=== PATIENT | female | born 1985 | race Caucasian/White ===

== ENCOUNTER 2021-04-10 07:59 | Emergency (ER) | payer OTHER | END 2021-04-10 19:17 | disposition left against medical advice (07) | LOC: FER 07:59 | DX: R42 Dizziness and giddiness (principal); Z53.21 Procedure and treatment not carried out due to patient leaving prior to being seen by health care provider | CPT/HCPCS: J7030 ==

== ENCOUNTER 2021-04-10 22:42 | Inpatient (IN) | payer OTHER ==
[2021-04-11 01:27] LABS: PROTHROMBIN TIME 12.6 SECONDS (11.8-13.4)
[2021-04-11 01:32] LABS: BASOPHIL 0.1 % (0-2); EOSINOPHIL 2.6 % (0-5); HCT 16.9 % (37.0-47.0); LYMPHOCYTE 18.5 % (15-48); MCH 17.4 pg (25.0-31.0); MCHC 25.4 g/dL (32.0-36.0); MCV 68.4 fL (78.0-100.0); MONOCYTE 8.6 % (0-12); MPV 9.9 fL (6.0-9.5); NEUTROPHIL 69.6 % (41-80); NRBC 0.3; PLT 364 K/uL (150-400); RBC 2.47 M/uL (4.20-5.40)
[2021-04-11 01:35] LABS: ALBUMIN 3.4 g/dL (3.4-5.0); BILIRUBIN - TOTAL 0.2 mg/dL (0.2-1.0); BUN/CREAT RATIO (CALC) 18.1 RATIO; CREATININE 0.83 mg/dL (0.51-0.95); GLOBULIN (CALCULATION) 3.7 g/dL; POTASSIUM 4.1 mmol/L (3.5-5.1); TOTAL PROTEIN 7.1 g/dL (6.4-8.2)
[2021-04-11 01:43] LABS: HGB 4.3 g/dl (12.5-16.0)
[2021-04-11 14:25] LABS: HCT 21.5 % (37.0-47.0); HGB 6.1 g/dL (12.5-16.0)
--- NOTE | 2021-04-11 14:50 | NUR ---
PATIENT ARRIVED TO FLOOR VIA WHEELCHAIR WITH ALL BELONGINGS. 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 PT STATED SHE WAS GOING TO GO HOME. MYSELF AND ASHLEY LOVELACE EXPLAINED THAT PT HGB WAS STILL CRITICALLY LOW AND WE WOULD NOT ADVISE SHE LEAVE. PT WAS INSISTENT ON LEAVING. NOTIFIED DR. NEWTON AND HE SAID TO HAVE HER SIGN THE AMA PAPERWORK AND SEND HER HOME. AMA FORM WAS SIGNED AND BILATERAL AC IVs WERE REMOVED WITHOUT DIFFICULTY. CATHETER INTACT. PT WALKED OUT OF HOSPITAL WITH ALL BELONGINGS. SHE STATED SHE WOULD DRIVE HERSELF HOME.
== END 2021-04-11 11:44 | disposition left against medical advice (07) | DRG 811 ==
LOC: FER 22:42 → FOFB 04-11 04:49 → FTCU 04-11 10:23
PROVIDERS: Emergency Medicine; Nurse Practitioner; ADMIT Internal Medicine
PROC: 30233N1 Transfusion of Nonautologous Red Blood Cells into Peripheral Vein, Percutaneous Approach (ICD-10-PCS; principal; 2021-04-11)
PROC: 8E0ZXY6 Isolation (ICD-10-PCS; 2021-04-11)
DX: D50.9 Iron deficiency anemia, unspecified (principal); U07.1 COVID-19; K90.9 Intestinal malabsorption, unspecified; F41.9 Anxiety disorder, unspecified; F17.210 Nicotine dependence, cigarettes, uncomplicated; K21.9 Gastro-esophageal reflux disease without esophagitis; K44.9 Diaphragmatic hernia without obstruction or gangrene; K42.9 Umbilical hernia without obstruction or gangrene; F32.A Depression, unspecified; Z86.14 Personal history of Methicillin resistant Staphylococcus aureus infection; Z79.899 Other long term (current) drug therapy
CPT/HCPCS: 36415; 36430; 80053; 85014; 85018; 85025; 85610; 86850; 86900; 86901; 86922; C9113; J2060; J7030; J7050; P9016; Q9967; U0002

== ENCOUNTER 2021-04-26 23:17 | Inpatient (IN) | payer OTHER ==
[~2021-04-26] VITALS: Ht 170.2 cm; Wt 152.5 kg
[2021-04-27 01:45] LABS: BILIRUBIN NEGATIVE (NEGATIVE); BLOOD 3+ Ery/uL (NEGATIVE); COLOR YELLOW (YELLOW); GLUCOSE (U) NORMAL (NORMAL); LEUKOCYTES NEGATIVE Leu/uL (NEGATIVE); NITRITE NEGATIVE (NEGATIVE); PROTEIN TRACE (LOW) mg/dL (NEGATIVE); SPECIFIC GRAVITY 1.025 (1.001-1.030); UROBILINOGEN 0.2 mg/dL (0.2-1.0); pH 6.5 (5.0-9.0)
[2021-04-27 01:47] LABS: CLARITY SLIGHTLY HAZY (CLEAR)
[2021-04-27 01:48] LABS: HCG (URINE) SCREEN NEGATIVE (NEGATIVE)
[2021-04-27 01:53] LABS: BACTERIA TRACE; URINARY RBC TNTC
[2021-04-27 09:28] LABS: HGB 6.9 g/dL (12.5-16.0)
[2021-04-27] MEDS ORDERED: FEOSOL325 MG PO (16:56)
[2021-04-27] MEDS ORDERED: PROTONIX 40MG T40 MG PO (16:56)
[2021-04-27] MEDS ORDERED: FOLIC ACID1 MG PO (16:56)
== END 2021-04-27 17:00 | disposition left against medical advice (07) | DRG 812 ==
LOC: FER 23:17 → FMS 04-27 00:07
PROVIDERS: Family Medicine; Nurse Practitioner; ADMIT Internal Medicine
PROC: 30233N1 Transfusion of Nonautologous Red Blood Cells into Peripheral Vein, Percutaneous Approach (ICD-10-PCS; principal; 2021-04-27)
DX: D50.9 Iron deficiency anemia, unspecified (principal); Z20.822 Contact with and (suspected) exposure to COVID-19; F32.A Depression, unspecified; K21.9 Gastro-esophageal reflux disease without esophagitis; F17.200 Nicotine dependence, unspecified, uncomplicated; E66.01 Morbid (severe) obesity due to excess calories; F41.9 Anxiety disorder, unspecified; F17.210 Nicotine dependence, cigarettes, uncomplicated; R10.9 Unspecified abdominal pain; Z98.890 Other specified postprocedural states
CPT/HCPCS: 36415; 81001; 84703; 85018; 86922; C9113; J2916; P9016; U0002

== ENCOUNTER 2021-08-03 10:06 | Emergency (ER) | payer OTHER ==
[~2021-08-03 10:06] MED LIST: FEOSOL325 MG PO; FOLIC ACID1 MG PO; PROTONIX 40MG T40 MG PO
[2021-08-03 11:45] LABS: BASOPHIL 0.3 % (0-2); EOSINOPHIL 1.6 % (0-5); HCT 21.6 % (37.0-47.0); LYMPHOCYTE 8.3 % (15-48); MCH 16.5 pg (25.0-31.0); MCHC 25.5 g/dL (32.0-36.0); MCV 64.7 fL (78.0-100.0); MONOCYTE 6.1 % (0-12); MPV 9.7 fL (6.0-9.5); NEUTROPHIL 83.3 % (41-80); NRBC 0; PLT 384 K/uL (150-400); RBC 3.34 M/uL (4.20-5.40); RDW 20.7 % (11.5-14.0); WBC 9.9 K/uL (4.0-10.5)
[2021-08-03 12:04] LABS: HGB 5.5 g/dl (12.5-16.0)
[2021-08-03 12:09] LABS: BUN/CREAT RATIO (CALC) 22.5 RATIO; CREATININE 0.71 mg/dL (0.51-0.95); POTASSIUM 3.9 mmol/L (3.5-5.1)
== END 2021-08-03 17:25 | disposition home or self-care (01) ==
LOC: FER 10:06
PROVIDERS: Emergency Medicine
DX: D50.9 Iron deficiency anemia, unspecified (principal); F17.210 Nicotine dependence, cigarettes, uncomplicated
CPT/HCPCS: 36415; 36430; 71046; 80048; 85025; 86850; 86900; 86901; 86922; J7040; P9016